=== PATIENT | female | born 1990 | race Caucasian/White ===

== ENCOUNTER 2016-05-27 16:21 | Outpatient (CLI) | payer MEDICAID | END 2016-05-27 16:22 | disposition home or self-care (01) | DX: O91.23 Nonpurulent mastitis associated with lactation (principal) ==

== ENCOUNTER 2016-07-08 10:50 | Outpatient (CLI) | payer MEDICAID | END 2016-07-08 23:59 | DX: R23.3 Spontaneous ecchymoses (principal) ==

== ENCOUNTER 2016-10-05 17:33 | Outpatient (CLI) | payer MEDICAID ==
--- NOTE | 2016-10-06 10:58 | XRAY Report ---
ACUTE ABDOMEN SERIES: 10/05/2016 CLINICAL INDICATION: Abdominal pain. FINDINGS: Supine and upright views of the abdomen and a frontal view of the chest demonstrate a norm al cardiac silhouette. The lungs are clear. The bowel gas pattern is normal. There is no free intr aperitoneal gas present. No abnormal calcifications are appreciated overlying either renal shadow. IMPRESSION: NO EVIDENCE OF BOWEL OBSTRUCTION OR PERFORATION. NO EVIDENCE OF ACUTE CARDIOPULMONARY D ISEASE. JOB #: [id number] EXT JOB #:[id number]
== END 2016-10-05 17:34 | disposition home or self-care (01) ==
LOC: DI 17:33
PROVIDERS: ATTEND Physician Assistant
DX: R10.9 Unspecified abdominal pain (principal)
CPT/HCPCS: 74022

== ENCOUNTER 2016-10-06 14:18 | Emergency (ER) | payer MEDICAID ==
[2016-10-06 15:13] LABS: BILIRUBIN,URINE NEGATIVE (NEGATIVE)
[2016-10-06 15:15] LABS: HCG UR QUAL NEGATIVE; UA w/ MICROSCOPIC CHARGE YES
[2016-10-06 15:22] LABS: UR CULTURE IF IND NOT INDICATED; WBC,URINE 0-3 /HPF (0-5)
[2016-10-06 15:26] LABS: BASOPHILS % (AUTO) 0.7 %; EOSINOPHILS # (AUTO) 0.1 10^3/uL (0.0-0.7); EOSINOPHILS % (AUTO) 0.9 %; HCT - HEMATOCRIT 39.6 % (37.0-47.0); HGB - HEMOGLOBIN 13.4 g/dL (12.0-16.0); LYMPHOCYTES # (AUTO) 1.9 10^3/uL (1.5-3.5); LYMPHOCYTES % (AUTO) 27.4 %; MEAN CORPUSCULAR HGB CONC 33.8 g/dL (32.0-36.0); MEAN CORPUSCULAR VOLUME 88.6 fL (81.0-99.0); MEAN PLATELET VOLUME 8.3 fL (7.9-10.8); MONOCYTES # (AUTO) 0.4 10^3/uL (0.0-1.0); MONOCYTES % (AUTO) 5.1 %; NEUTROPHILS # (AUTO) 4.7 10^3/uL (1.5-6.6); NEUTROPHILS % (AUTO) 65.9 %; NUCLEATED RED BLOOD CELLS AUTO 0.1 /100WBC; RED BLOOD COUNT 4.47 10^6/uL (4.20-5.40); RED CELL DISTRIBUTION WIDTH 12.3 % (12.0-15.0); UNCORRECTED WHITE BLOOD COUNT 7.1 x10^3/uL; WHITE BLOOD COUNT 7.1 x10^3/uL (4.8-10.8)
[2016-10-06 15:38] LABS: ALBUMIN/GLOBULIN RATIO 1.4 (1.0-2.2); BILIRUBIN,TOTAL 0.4 mg/dL (0.2-1.0); CALCIUM 9.2 mg/dL (8.5-10.3); CREATININE 0.6 mg/dL (0.4-1.0); POTASSIUM 3.7 mmol/L (3.5-5.0); TOTAL PROTEIN 7.1 g/dL (6.7-8.2)
--- NOTE | 2016-10-06 15:39 | ED Physician Documentation ---
PD HPI ABD PAIN - Stated complaint Stated Complaint: ABD PX - Chief complaint Chief Complaint: Abd Pain - History obtained from History obtained from: Patient - History of Present Illness Timing - onset: Yesterday Timing - duration: Days (1) Timing - details: Still present in ED Pain level max: 7 Pain level now: 7 Quality: Dull, Stabbing Location: LLQ Radiation: Other (LUQ) Improved by: Other (hasn't taken anything for this) Worsened by: Eating, Other (lying down) Associated symptoms: No: Fever, Nausea, Vomiting, Hematemesis, Diarrhea, Constipation Similar symptoms before: Has not had sx before Recently seen: Clinic (yesterday for same) Review of Systems Constitutional: denies: Fever, Chills Nose: denies: Rhinorrhea / runny nose, Congestion Cardiac: denies: Chest pain / pressure Respiratory: denies: Cough GI: denies: Vomiting, Constipation, Diarrhea : denies: Dysuria, Frequency, Hesitancy, Discharge, Now EGA Skin: denies: Rash Musculoskeletal: denies: Neck pain Neurologic: denies: Focal weakness, Numbness, Headache PD PAST MEDICAL HISTORY - Past Medical History Past Medical History: Yes Cardiovascular: Hypertension - Past Surgical History Past Surgical History: No - Present Medications Home Medications: Ambulatory Orders Medication Instructions Recorded Confirmed Famotidine [Pepcid] 20 mg PO BID #30 tablet 10/06/16 Hydrochlorothiazide 12.5 mg PO DAILY 10/06/16 10/06/16 Hydrocodone/Acetaminophen 1 - 2 each PO Q6H PRN #14 tablet 10/06/16 [Hydrocodon-Acetaminophen 5-325] Omeprazole [PriLOSEC] 20 mg PO DAILY #30 capsule 10/06/16 Sucralfate [Carafate] 1 gm PO ACHS #60 tablet 10/06/16 - Allergies Allergies/Adverse Reactions: Allergies Allergy/AdvReac Type Severity Reaction Status Date / Time amoxicillin AdvReac Unknown Verified 02/19/15 16:30 - Social History Does the pt smoke?: No Smoking Status: Never smoker Does the pt drink ETOH?: No Does the pt have substance abuse?: No - Immunizations Immunizations are current?: Yes PD ED PE NORMAL - Vitals Vital signs reviewed: Yes - General General: Alert and oriented X 3, No acute distress, Well developed/nourished - HEENT HEENT: Moist mucous membranes - Neck Neck: Supple, no meningeal sign - Cardiac Cardiac: RRR, Strong equal pulses - Respiratory Respiratory: No respiratory distress, Clear bilaterally - Abdomen Abdomen: Soft, Non distended, Other (TTP LUQ and LLQ. No peritoneal signs. Negative Muse. No tenderness in the right lower quadrant. No pelvic tenderness) - Female Female : Pt declined - Back Back: No CVA TTP - Derm Derm: Warm and dry - Extremities Extremities: No edema - Neuro Neuro: Alert and oriented X 3 - Psych Psych: Normal mood, Normal affect Results - Vitals Vitals: Vital Signs - 24 hr 10/06/16 10/06/16 10/06/16 14:23 16:37 17:34 Temperature 37.0 C Heart Rate 91 90 88 Respiratory 16 18 18 Rate Blood Pressure 141/95 H 142/92 H 142/101 H O2 Saturation 100 99 100 Oxygen O2 Source Room air - Labs Labs: Laboratory Tests 10/06/16 10/06/16 10/06/16 15:00 15:22 15:22 WBC 7.1 RBC 4.47 Hgb 13.4 Hct 39.6 MCV 88.6 MCH 30.0 MCHC 33.8 RDW 12.3 Plt Count 233 MPV 8.3 Neut # 4.7 Lymph # 1.9 Lamb # 0.4 Eos # 0.1 Baso # 0.0 Absolute Nucleated RBC 0.01 Nucleated RBCs 0.1 Sodium 137 Potassium 3.7 Chloride 104 Carbon Dioxide 28 Anion Gap 5.0 L BUN 7 Creatinine 0.6 Estimated GFR (MDRD) 120 Glucose 94 Calcium 9.2 Total Bilirubin 0.4 AST 16 ALT 12 Alkaline Phosphatase 107 Total Protein 7.1 Albumin 4.1 Globulin 3.0 Albumin/Globulin Ratio 1.4 Lipase 18 L Urine Color YELLOW Urine Clarity CLEAR Urine pH 6.0 Ur Specific [place] <=1.005 Urine Protein NEGATIVE Urine Glucose (UA) NEGATIVE Urine Ketones NEGATIVE Urine Occult Blood TRACE-LYSE Urine Nitrite NEGATIVE Urine Bilirubin NEGATIVE Urine Urobilinogen 0.2 (NORMAL) Ur Leukocyte Esterase TRACE H Urine RBC 0-5 Urine WBC 0-3 Ur Squamous Epith Cells MOD Squamous H Urine Bacteria Few Ur Microscopic Review INDICATED Urine Culture Comments NOT INDICATED Urine HCG, Qual NEGATIVE PD MEDICAL DECISION MAKING - ED course Complexity details: reviewed results, re-evaluated patient, considered differential, d/w patient, d/w family ED course: Patient is a 26-year-old female who presents to the emergency department what sounds like gastritis versus peptic ulcer disease. No acute findings on laboratory testing. Symptoms resolved with GI cocktail. She is very well- appearing, nontoxic. Afebrile. Will place on PPI and H2 janice for home and follow-up with her doctor for further testing. Patient counseled regarding signs and symptoms for which I believe and urgent re-evaluation would be necessary. Patient with good understanding of and agreement to plan and is comfortable going home at this time This document was made in part using voice recognition software. While efforts are made to proofread this document, sound alike and grammatical errors may occur. Departure - Departure Disposition: Home, Self Care Clinical Impression: Gastritis Qualifiers: Gastritis type: unspecified gastritis Chronicity: acute Gastritis bleeding: without bleeding Qualified Code(s): K29.00 - Acute gastritis without bleeding Condition: Good Instructions: ED PUD Vs Gastritis Follow-Up: Michelet Lopez PA-C [Primary Care Provider] - Within 1 week Prescriptions: Sucralfate [Carafate] 1 gm PO ACHS #60 tablet Hydrocodone/Acetaminophen [Hydrocodon-Acetaminophen 5-325] 1 - 2 each PO Q6H PRN #14 tablet PRN Reason: pain Famotidine [Pepcid] 20 mg PO BID #30 tablet Omeprazole [PriLOSEC] 20 mg PO DAILY #30 capsule Comments: Return if you worsen. Avoid spicy foods, fried foods, alcohol, caffeine. Continue all medications at home. Make sure to follow-up with your doctor for further evaluation including likely endoscopy. Do not drink alcohol or drive while on narcotic pain medicine. Note that many narcotic pain relievers also contain tylenol/acetaminophen. Please ensure that your total dose of acetaminophen from all sources does not exceed 3 grams (3000mg) per day. You may constipated on this medication, take a stool softener such as "Colace" twice a day while you are on it. Also recommend a [id number] laxative such as senna or MiraLAX any day that you do not have a bowel movement. If you received narcotic pain medication in the emergency department, do not drive or operate machinery for the next 24 hours. Discharge Date/Time: 10/06/16 17:40
[2016-10-06] MEDS ORDERED: LIDOCAINE VISCOUS 2% 15 ML UDC MM STA (16:03)
[2016-10-06] MEDS ORDERED: MAG HYDROX/AL HYDROX/SIMETH 30 ML UDC PO STA (16:03)
[2016-10-06] MEDS ORDERED: SUCRALFATE 1 GM/10 ML UDC PO STA (16:03)
[2016-10-06] MEDS ORDERED: FAMOTIDINE 20 MG TABLET PO STA (16:03)
[2016-10-06] MEDS ORDERED: PHENobarb/HYOSCY/ATROPINE/SCOP 5 ML SYRINGE PO STA (16:03)
[2016-10-06] MEDS ORDERED: PHENobarb/HYOSCY/ATROPINE/SCOP 5 ML SYRINGE PO ONE (16:17)
[2016-10-06] MEDS ORDERED: FAMOTIDINE 20 MG TABLET ONE (16:17)
[2016-10-06] MEDS ORDERED: MAG HYDROX/AL HYDROX/SIMETH 30 ML UDC ONE (16:17)
[2016-10-06] MEDS ORDERED: SUCRALFATE 1 GM/10 ML UDC ONE (16:17)
[2016-10-06] MEDS ORDERED: LIDOCAINE VISCOUS 2% 15 ML UDC MM ONE (16:17)
[2016-10-06] MEDS ORDERED: HYDROcod/ACETAM 5/325 MG TABLET PO STA (17:22)
[2016-10-06] MEDS ORDERED: HYDROcod/ACETAM 5/325 MG TABLET ONE (17:27)
[2016-10-06 17:35] VITALS: BP 142/101
== END 2016-10-06 17:40 | disposition home or self-care (01) ==
LOC: ED 14:18
DX: K29.00 Acute gastritis without bleeding (principal); I10 Essential (primary) hypertension
CPT/HCPCS: 36415; 80053; 81001; 81025; 83690; 85025; 99283; A9270; 81003; 87086

== ENCOUNTER 2016-11-16 21:28 | Outpatient (CLI) | payer MEDICAID | END 2016-11-16 21:29 | disposition home or self-care (01) | LOC: LAB.N 21:28 | PROVIDERS: ATTEND Physician Assistant | DX: R10.9 Unspecified abdominal pain (principal); M54.5 Low back pain | CPT/HCPCS: 36415; 86200; 86304 ==